=== PATIENT | female | born 1965 ===

== ENCOUNTER → 2024-11-11 | Outpatient (CLI) | payer OTHER | LOC: PET 08:00 | PROVIDERS: ATTEND Nurse Practitioner Adult Health | DX: C83.31 Diffuse large B-cell lymphoma, lymph nodes of head, face, and neck (principal) | CPT/HCPCS: 78816; A9552 ==

== ENCOUNTER → 2024-12-06 | Day surgery (SDC) | payer OTHER ==
[~2024-12-06] MED LIST: Ketorolac Tromethamine 30 MG (1 mL) VIAL IVP SCH; Lidocaine 1% PF 5 ML VIAL ONE; Lidocaine 1% w/Epinephrine 1:100K 20 ML VIAL ONE; Midazolam HCl 2 mg/2 ml Vial ONE; Sodium Bicarbonate 2.5 MEQ/5 ML SDV ONE; fentaNYL 50 mcg/mL 1 mL Vial ONE
[2024-12-06 08:55] LABS: #Basophils Less than 0.03 10x3/uL (0.0-0.2); %Basophils 0.2 % (0.0-1.0); %Eosinophils 1.1 % (0.0-10.0); %Lymphocytes 20.2 % (21.0-51.0); %Monocytes 5.5 % (0.0-10.0); %Neutrophils 72.6 % (42.0-75.0); Hematocrit 35.9 % (36.0-47.0); Hemoglobin 11.6 g/dL (12.0-16.0); Mean Corpuscular HGB CONC 32.3 g/dL (32.0-36.0); Mean Corpuscular Hemoglobin 27.4 pg (27.0-31.0); Mean Corpuscular Volume 84.9 fL (78.0-98.0); Mean Platelet Volume 10.9 fL (7.4-10.4); Platelet Count 309 10x3/uL (130-400); RBC Distribution Width 12.5 % (11.5-14.5); Red Blood Cell (RBC) Count 4.23 mill/uL (4.20-5.40)
[2024-12-06 09:07] LABS: INR-International Normal Ratio 1.1; Prothrombin Time 13.7 sec (12.0-14.7)
[2024-12-06 09:08] LABS: PTT 38.2 sec (22.9-36.1)
== END ==
LOC: CT 08:30
PROVIDERS: ATTEND Internal Medicine Hematology & Oncology
PROC: 07BB3ZX Excision of Mesenteric Lymphatic, Percutaneous Approach, Diagnostic (ICD-10-PCS; principal; 2024-12-06)
DX: C83.33 Diffuse large B-cell lymphoma, intra-abdominal lymph nodes (principal); I10 Essential (primary) hypertension; E11.9 Type 2 diabetes mellitus without complications; Z87.891 Personal history of nicotine dependence; Z90.49 Acquired absence of other specified parts of digestive tract; Z90.89 Acquired absence of other organs; Z88.8 Allergy status to other drugs, medicaments and biological substances; Z79.2 Long term (current) use of antibiotics; Z79.84 Long term (current) use of oral hypoglycemic drugs; Z79.899 Other long term (current) drug therapy
CPT/HCPCS: 49180; 77012; 85025; 85610; 85730; 88184; 88307; 88333; J1885; J2250; J3010